=== PATIENT | female | born 1985 | race African-American/Black ===

== ENCOUNTER 2018-03-10 05:09 | Inpatient (IN) ==
[2018-03-10] MEDS ORDERED: ONDANSETRON 4 MG/2 ML VIAL IV PRN (05:44)
[2018-03-10] MEDS ORDERED: BUTORPHANOL 2 MG/ML VIAL IV PRN (05:44)
[2018-03-10] MEDS ORDERED: LACTATED RINGERS 500 ML IV PRN (05:44)
[2018-03-10] MEDS ORDERED: MEPERIDINE 50 MG/1 ML VIAL IV PRN (05:44)
[2018-03-10] MEDS: LACTATED RINGERS 1,000 ML IV SCH ×2 (06:10→09:06)
[2018-03-10 06:11] LABS: Basophils % 0.3 % (0.0-0.8); Eosinophils # 0.1 10*3/uL (0.0-0.87); Eosinophils % 0.9 % (0.00-10.9); Hematocrit 34.4 VOL% (35.7-47.0); Hemoglobin 10.9 GM/DL (12.0-16.0); Immature Granulocytes % 1.2 %; Immature Granulocytes Absolute 0.14 #; Lymphocytes # 1.5 10*3/uL (1.4-4.0); Lymphocytes % 13.2 % (21.3-54.2); Mean Corpuscular HGB Conc 31.7 GM/DL (32-36); Mean Corpuscular Hemoglobin 28 PG (27-34); Mean Corpuscular Volume 88.9 FL (87-102); Mean Platelet Volume 10.9 FL (9.6-12.0); Monocytes # 0.9 10*3/uL (0.11-0.8); Monocytes % 8.2 % (1.7-12.7); NRBC # 0.02 10*3/uL; Neutrophils # 8.8 10*3/uL (1.4-7.4); Neutrophils % 76.2 % (38.7-73.9); Platelet Count 220 T/CUMM (130-400); Red Blood Count 3.87 MC/CUMM (3.8-5.5); Red Cell Distribution Width 15.4 % (9.3-17.3); White Blood Count 11.5 T/CUMM (4-12)
[2018-03-10] MEDS: OXYTOCIN/LR 20 UNIT/1,000 ML BAG IV SCH ×2 (06:35→16:14)
[2018-03-10] MEDS ORDERED: ONDANSETRON 4 MG/2 ML VIAL IV ONE (07:40)
[2018-03-10] MEDS ORDERED: FAMOTIDINE 20 MG/2 ML VIAL IV ONE (07:40)
[2018-03-10] MEDS ORDERED: diphenhydrAMINE 50 MG/1 ML VIAL IV PRN ×2 (07:40)
[2018-03-10] MEDS ORDERED: PROMETHAZINE 25 MG/1 ML VIAL IM ONE (07:40)
[2018-03-10] MEDS ORDERED: hydrOXYzine HCL 25 MG/1 ML VIAL IM PRN (07:40)
[2018-03-10] MEDS ORDERED: ePHEDrine 50 MG/ML AMP IV PRN (07:40)
[2018-03-10] MEDS ORDERED: NALOXONE 0.4 MG/ML VIAL IV PRN (07:40)
[2018-03-10] MEDS ORDERED: CITRIC ACID/SODIUM CITRATE 30 ML UDCUP PO ONE (07:40)
[2018-03-10] MEDS ORDERED: LACTATED RINGERS 1,000 ML IV ONE (07:40)
[2018-03-10] MEDS ORDERED: fentaNYL 2 MCG/ROPIV 0.2% EPID 100 ML EPIDURAL SCH (08:00)
[2018-03-10] MEDS ORDERED: LIDOCAINE 1% 50 ML VIAL ONE (09:19)
[2018-03-10] MEDS ORDERED: miSOPROStol 200 MCG TABLET ONE (09:19)
[2018-03-10] MEDS ORDERED: METHYLERGONOVINE 0.2 MG/1 ML AMP ONE (09:19)
[2018-03-10] MEDS ORDERED: CARBOPROST TROMETHAMINE 250 MCG/ML AMP IM ONE (09:20)
[2018-03-10] MEDS ORDERED: IBUPROFEN 800 MG TABLET PO PRN ×2 (14:44→18:02)
[2018-03-10] MEDS ORDERED: BENZOCAINE 20%/MENTHOL 0.5% SPRAY 56 GM CAN TOP PRN (18:02)
[2018-03-10] MEDS ORDERED: oxyCODONE/ACETAMINOPHEN 5-325 MG TABLET PO PRN ×2 (18:02)
[2018-03-10] MEDS ORDERED: HYDROCORTISONE 2.5% RECTAL CREAM 30 GM TUBE TOP PRN (18:02)
[2018-03-10] MEDS ORDERED: MEASLES/MUMPS/RUBELLA VACCINE 0.5 ML VIAL SUBCUT ONE (18:02)
[2018-03-10] MEDS ORDERED: RHO(D) IMMUNE GLOBULIN 300 MCG SYRINGE IM ONE (18:02)
[2018-03-10] MEDS ORDERED: WITCH HAZEL PADS 100/JAR TOP PRN (18:02)
[2018-03-10] MEDS ORDERED: ACETAMINOPHEN 325 MG TABLET PO PRN (18:02)
[2018-03-10] MEDS ORDERED: BISACODYL 10 MG SUPP RECTAL PRN (18:02)
[2018-03-10] MEDS ORDERED: LANOLIN 50% CREAM 0.3 OZ TUBE TOP PRN (18:02)
[2018-03-10] MEDS ORDERED: DIPH/TET/ACEL PERT BOOSTER VACCINE 0.5 ML VIAL IM ONE (18:02)
[2018-03-10] MEDS ORDERED: ACETAMINOPHEN/CODEINE 300-30 MG TABLET PO PRN ×2 (18:02→23:52)
[2018-03-10] MEDS: DOCUSATE SODIUM 100 MG CAPSULE PO SCH (20:48)
[2018-03-10] MEDS ORDERED: DOCUSATE SODIUM 100 MG CAPSULE PO SCH (21:00)
[2018-03-10] MEDS: ACETAMINOPHEN/CODEINE 300-30 MG TABLET PO PRN (23:57)
[2018-03-11 04:25] LABS: Basophils % 0.2 % (0.0-0.8); Eosinophils # 0.1 10*3/uL (0.0-0.87); Eosinophils % 0.9 % (0.00-10.9); Hematocrit 28.2 VOL% (35.7-47.0); Immature Granulocytes % 0.9 %; Immature Granulocytes Absolute 0.12 #; Lymphocytes # 1.6 10*3/uL (1.4-4.0); Lymphocytes % 12.6 % (21.3-54.2); Mean Corpuscular HGB Conc 31.9 GM/DL (32-36); Mean Corpuscular Hemoglobin 28 PG (27-34); Mean Corpuscular Volume 87.3 FL (87-102); Mean Platelet Volume 11.2 FL (9.6-12.0); Monocytes # 0.9 10*3/uL (0.11-0.8); Monocytes % 6.8 % (1.7-12.7); Neutrophils # 10.1 10*3/uL (1.4-7.4); Neutrophils % 78.6 % (38.7-73.9); Platelet Count 188 T/CUMM (130-400); Red Blood Count 3.23 MC/CUMM (3.8-5.5); Red Cell Distribution Width 15.1 % (9.3-17.3); White Blood Count 12.9 T/CUMM (4-12)
[2018-03-11] MEDS: DOCUSATE SODIUM 100 MG CAPSULE PO SCH ×2 (08:25→20:26)
[2018-03-11] MEDS: MULTIVITAMIN (PRENATAL) TABLET PO SCH (08:25)
[2018-03-11] MEDS ORDERED: FERROUS SULFATE 325 MG TABLET PO SCH ×2 (09:00)
[2018-03-11] MEDS: ACETAMINOPHEN/CODEINE 300-30 MG TABLET PO PRN (18:45)
[2018-03-11] MEDS: FERROUS SULFATE 325 MG TABLET PO SCH (20:25)
[2018-03-12] MEDS: MULTIVITAMIN (PRENATAL) TABLET PO SCH (08:42)
[2018-03-12] MEDS: DOCUSATE SODIUM 100 MG CAPSULE PO SCH (08:42)
[2018-03-12] MEDS: FERROUS SULFATE 325 MG TABLET PO SCH (08:42)
[2018-03-12 11:22] VITALS: BP 123/81
== END 2018-03-12 15:45 | disposition home or self-care (01) | DRG 560 ==
LOC: N.LDOUT 05:09 → N.LD 05:15 → N.OB 18:03
PROVIDERS: ADMIT Obstetrics & Gynecology; ATTEND Obstetrics & Gynecology